=== PATIENT | female | born 1955 | race Caucasian/White ===

== ENCOUNTER → 2017-01-30 | Outpatient (CLI) | payer OTHER ==
[~2017-01-30] MED LIST: GLUC1CAP33; MULT-506 PO
[2017-01-30 10:07] LABS: CHOLESTEROL/HDL RATIO 4.3
[2017-01-30 10:34] LABS: ESTIMATED AVERAGE GLUCOSE 123 mg/dl; HA1C FLAG Normal (Normal)
== END | disposition home or self-care (01) ==
LOC: C.LAB 12:04
PROVIDERS: ATTEND Family Medicine
DX: R73.03 Prediabetes (principal); E78.00 Pure hypercholesterolemia, unspecified

== ENCOUNTER → 2017-04-02 | Outpatient (CLI) | payer OTHER ==
[~2017-04-02] MED LIST changes: +OPTIRAY 320 IV PRN
--- NOTE | 2017-04-02 08:15 | DIAGNOSTIC IMAGING REPORT ---
(CHEST) THORAX WITH CT DOSE: 1607.73 mGy.cm HISTORY: Lymphoma LYMPHOMA TECHNIQUE: Multiaxial CT images of the chest were performed following the intravenous administration of contrast. A dose lowering technique was utilized adhering to the principles of ALARA. COMPARISON: 04/12/2016 FINDINGS: The lungs are clear. The mediastinal vascular structures are within normal limits. No mediastinal or hilar lymphadenopathy. No pleural effusion or pneumothorax. Limited views of the upper abdomen demonstrate a normal liver and spleen. Unchanging micronodule in the right lung base very low suspicion. IMPRESSION: No significant abnormality identified within the chest. No change from the prior study. The above report was generated using voice recognition software. It may contain grammatical, syntax or spelling errors. Electronically signed by: Migue Oneal M.D. 04/02/2017 8:14 AM Dictated Date/Time: 04/02/2017 8:11 AM
--- NOTE | 2017-04-02 08:24 | DIAGNOSTIC IMAGING REPORT ---
ABD/PELVIS IV AND ORAL CONT CLINICAL HISTORY: 61 years-old Female presenting with LYMPHOMA. TECHNIQUE: Multidetector CT of the abdomen and pelvis was performed after the administration of oral and intravenous contrast. IV contrast: 93 mL of Optiray 320. A dose lowering technique was used consistent with the principles of ALARA (as low as reasonably achievable). COMPARISON: 04/12/2016. CT DOSE (mGy.cm): The estimated cumulative dose is 1607.73 inclusive of the chest CT. FINDINGS: Press Assistant And Feeder topogram: Right subclavian Mediport in place. Lung bases: Dependent changes at the lung bases likely atelectasis. Additionally, within the dependent opacity at the right lung base, there is a 5-6 mm solid pulmonary nodule (series 7 image 10), unchanged in size from prior exam. No pericardial or pleural effusion. Liver: Normal morphology. Suggestion of hepatic steatosis. No liver lesion. Calcification at the right hepatic dome. Patent hepatic vasculature. Biliary: No intrahepatic or extrahepatic biliary ductal dilatation. Normal gallbladder. Pancreas: Normal. Spleen: Normal. Adrenal glands: Normal. Kidneys and ureters: Well-defined hypodensity in the anterior aspect of the interpolar region of the right kidney with a density slightly above simple fluid, possibly proteinaceous or hemorrhagic cyst. This now measures 9 mm, previously 7 mm when remeasured at a comparable level. Multiple calcifications at the lower pole the left kidney, some of which may be parenchymal and some national sales representative of punctate renal calculi. No hydronephrosis. Duplicated left renal collecting system with convergence of the upper and lower pole collecting systems of the renal pelvis. Ureters normal. Gastrointestinal tract: Normal appendix. No bowel obstruction. Peritoneal cavity: No free fluid or intraperitoneal gas. Bladder: Normal. Pelvic organs: Uterus surgically absent. Vasculature: Aorta and IVC patent and normal in caliber. Lymph nodes: No enlarged lymph nodes in the abdomen or pelvis. Abdominal wall: Diastases of the abdominis rectus. Musculoskeletal: Degenerative changes of the spine. IMPRESSION: 1. No evidence of lymphadenopathy. No evidence of metastatic disease in the abdomen or pelvis. 2. Stable right lower lobe pulmonary nodule. Please see separately dictated CT chest for further details. 3. Left nephrolithiasis, new from prior. 4. Stable slight interval increase in size of the indeterminate subcentimeter right renal lesion, which may represent a proteinaceous or hemorrhagic cyst. Attention on follow-up. 5. Electronically signed by: Joe Veliz M.D. 04/02/2017 8:22 AM Dictated Date/Time: 04/02/2017 8:12 AM
== END | disposition home or self-care (01) ==
LOC: C.CTS 07:37
PROVIDERS: ATTEND Nurse Practitioner Family
DX: C82.80 Other types of follicular lymphoma, unspecified site (principal)

== ENCOUNTER → 2017-10-12 | Outpatient (CLI) | payer OTHER ==
[~2017-10-12] MED LIST changes: -OPTIRAY 320 IV PRN
[2017-10-12 09:49] LABS: HEMOGLOBIN A1C 5.9 % (4.5-5.6)
== END | disposition home or self-care (01) ==
LOC: C.LAB 17:11
PROVIDERS: ATTEND Family Medicine
DX: E78.00 Pure hypercholesterolemia, unspecified (principal); R73.03 Prediabetes

== ENCOUNTER → 2017-12-11 | Outpatient (CLI) | payer BC ==
--- NOTE | 2017-12-12 15:30 | MAMMOGRAPHY REPORT ---
BILATERAL DIGITAL SCREENING MAMMOGRAM TOMOSYNTHESIS WITH CAD: 12/11/2017 CLINICAL HISTORY: Routine screening. Patient has no complaints. TECHNIQUE: Breast tomosynthesis in addition to standard 2D mammography was performed. Current study was also evaluated with a Computer Aided Detection (CAD) system. COMPARISON: Comparison is made to exams dated: 12/17/2015 mammogram, 12/19/2012 mammogram, 05/09/2011 ma mmogram - [facility], 06/01/2009, and 02/19/2007. BREAST COMPOSITION: There are scattered areas of fibroglandular density in both breasts. FINDINGS: The parenchymal pattern is similar to prior exams. No developing mass, architectural dist ortion or cluster of suspicious microcalcifications is seen in either breast. There are scattered st able benign calcifications in both breasts. IMPRESSION: ACR BI-RADS CATEGORY 2: BENIGN There is no mammographic evidence of malignancy. A 1 year screening mammogram is recommended. The pa tient will receive written notification of the results. Approximately 10% of breast cancers are not detected with mammography. A negative mammographic report should not delay biopsy if a clinically suggestive mass is present. Gracie Ag M.D. ay/:12/11/2017 15:04:49 Law Researcher: Jimena TOVAR(Huong)(Yonathan), [facility] letter sent: Normal 1/2 BI-RADS Code: ACR BI-RADS Category 2: Benign
== END ==
LOC: C.MAMM 13:20
PROVIDERS: ATTEND Nurse Practitioner Family
DX: Z12.31 Encounter for screening mammogram for malignant neoplasm of breast (principal)

== ENCOUNTER → 2018-03-18 | Outpatient (CLI) | payer BC ==
[~2018-03-18] MED LIST changes: +ATOR-22 PO; +COEN100C7 PO; -GLUC1CAP33; +GLUC1TAB94 PO; +MAGN400T5 PO; +OXYC-90 PO; +TURM1CAP2 PO; +ZINC1TAB PO
[2018-03-18 10:07] LABS: BASO % 0.7 %; BASO ABS # 0.05 K/uL (0-0.2); EOS % 2.7 %; EOS ABS # 0.18 K/uL (0-0.5); HEMATOCRIT 42.7 % (37-47); HEMOGLOBIN 14.2 g/dL (12.0-16.0); IG# 0.02 K/uL (0.00-0.02); LYMPH % 18.8 %; LYMPH ABS # 1.27 K/uL (1.2-3.4); MEAN CELL VOLUME 93.6 fL (80-100); MEAN CORPUSCULAR HEMOGLOBIN 31.1 pg (25-34); MEAN CORPUSCULAR HGB CONC 33.3 g/dl (32-36); MEAN PLATELET VOLUME 10.5 fL (7.4-10.4); MONO % 6.4 %; MONO ABS # 0.43 K/uL (0.11-0.59); NEUT % 71.1 %; NEUT ABS # 4.81 K/uL (1.4-6.5); PLATELET COUNT 242 K/uL (130-400); RED CELL DISTRIBUTION WIDTH CV 13.3 % (11.5-14.5); RED CELL DISTRIBUTION WIDTH SD 45.7 fL (36.4-46.3); WHITE BLOOD COUNT 6.76 K/uL (4.8-10.8)
[2018-03-18 10:32] LABS: BLOOD UREA NITROGEN 12 mg/dl (7-18); CREATININE 0.67 mg/dl (0.60-1.20); GLUCOSE 99 mg/dl (70-99)
[2018-03-18 10:33] LABS: ALBUMIN 4.1 gm/dl (3.4-5.0); ALT/SGPT 28 U/L (12-78); AST/SGOT 17 U/L (15-37); CALCIUM 9.3 mg/dl (8.5-10.1); CARBON DIOXIDE 29 mmol/L (21-32); POTASSIUM 4.1 mmol/L (3.5-5.1); SODIUM 141 mmol/L (136-145)
[2018-03-18 10:45] LABS: ALKALINE PHOSPHATASE 106 U/L (45-117); TOTAL PROTEIN 6.9 gm/dl (6.4-8.2)
== END | disposition home or self-care (01) ==
LOC: C.LABSPEC 09:45
PROVIDERS: ATTEND Nurse Practitioner Family
DX: C82.80 Other types of follicular lymphoma, unspecified site (principal)

== ENCOUNTER → 2018-03-21 | Outpatient (CLI) | payer BC ==
--- NOTE | 2018-03-21 10:25 | DIAGNOSTIC IMAGING REPORT ---
L WRIST MIN 3 VIEWS ROUTINE CLINICAL HISTORY: LEFT WRIST PAIN pain COMPARISON: 01/29/2018 DISCUSSION: (Reduction internal fixation of the comminuted fracture distal radius. Alignment is considered anatomic. Mild soft tissue edematous change. IMPRESSION: Anatomic alignment post open reduction internal fixation. The above report was generated using voice recognition software. It may contain grammatical, syntax or spelling errors. Electronically signed by: Migue Oneal M.D. 03/21/2018 10:23 AM Dictated Date/Time: 03/21/2018 10:23 AM
--- NOTE | 2018-03-21 10:27 | DIAGNOSTIC IMAGING REPORT ---
L SHOULDER MIN 2 VIEWS CLINICAL HISTORY: LEFT SHOULDER PAIN trauma. Pain. COMPARISON: 02/21/2018 DISCUSSION: Unchanging nondisplaced fracture lateral aspect humeral head. Moderate degenerative change acromioclavicular joint. No evidence of dislocation. All remaining osseous structures are unremarkable. There is no evidence for soft tissue swelling. IMPRESSION: Unchanging nondisplaced fracture lateral aspect left humeral head. The above report was generated using voice recognition software. It may contain grammatical, syntax or spelling errors. Electronically signed by: Migue Oneal M.D. 03/21/2018 10:26 AM Dictated Date/Time: 03/21/2018 10:25 AM
== END | disposition home or self-care (01) ==
LOC: C.RDSM 10:15
PROVIDERS: ATTEND Orthopaedic Surgery
DX: M25.532 Pain in left wrist (principal); M25.512 Pain in left shoulder

== ENCOUNTER → 2018-04-12 | Outpatient (CLI) | payer BC ==
[2018-04-12 09:21] LABS: HEMOGLOBIN A1C 5.7 % (4.5-5.6)
[2018-04-12 09:40] LABS: ALT/SGPT 28 U/L (12-78); BLOOD UREA NITROGEN 12 mg/dl (7-18); CALCIUM 9.3 mg/dl (8.5-10.1); CARBON DIOXIDE 27 mmol/L (21-32); CHOLESTEROL 169 mg/dl (0-200); CREATININE 0.73 mg/dl (0.60-1.20); GLUCOSE 107 mg/dl (70-99); LDL CHOLESTEROL CALCULATED 81 mg/dl; POTASSIUM 4.2 mmol/L (3.5-5.1); SODIUM 142 mmol/L (136-145)
== END | disposition home or self-care (01) ==
LOC: C.LABSPEC 08:44
PROVIDERS: ATTEND Family Medicine
DX: E78.5 Hyperlipidemia, unspecified (principal); Z11.59 Encounter for screening for other viral diseases

== ENCOUNTER 2020-09-15 06:59 | Observation (INO) ==
--- NOTE | 2020-09-12 19:02 | History & Physical Report ---
Date of Service September 12, 2020 Assessment & Plan (1) Left knee DJD: Postoperative prescriptions for EKG, chest x-ray, and lab work were given. She will have them done today. Postoperative prescription for a rolling walker was also provided. She will obtain a cane. She understands that this will be 1 night in the hospital. The patient will make an appointment to see her PCP for medical clearance. She is aware of the COVID-19 risks associated with surgery. She is currently asymptomatic of any COVID-19 symptoms. Prescription was provided for COVID-19 nasal swab testing to be done today. PDMP was checked and there are no concerning findings. She would like home health postoperatively for physical therapy, using [facility]. We will make arrangements before her discharge from the hospital. She has a postoperative visit for suture removal already scheduled for 09/30 with me. History of Present Illness Chief Complaint: Left knee pain Primary Care Provider: Al Plasencia MD This 64-year-old white female presents today for left knee pain she has had for several years. She is scheduled to undergo a left knee total knee arthroplasty on 09/15/2020. It has become worse with time. She initially was able to control her discomfort with viscosupplementation injections, cortisone injections and activity modification. Those are no longer working. She is now having daily pain. Occasional night pain. She denies any swelling. No catching or locking. No buckling. Worse with weightbearing activity. Pain is affecting her ADLs. She denies any numbness or tingling. She elects to proceed with surgical intervention in hopes of improving her function. Preoperative imaging has been obtained. Allergies Allergy/AdvReac Type Severity Reaction Status Date / Time No Known Drug Allergies Allergy Verified 09/10/20 09:00 Home Medications Medication Instructions Recorded Confirmed Type coenzyme Q10 10 mg capsule 100 mg PO 4XWK 12/11/19 09/10/20 History multivitamin 0.5 tab PO BID 12/11/19 09/10/20 History ascorbic acid-collagen [Collagen 2 cap PO QAM 08/04/20 09/10/20 History Plus Vitamin C] aspirin [Aspir-81] 81 mg PO 4XWK 08/04/20 09/10/20 History atorvastatin [Lipitor] 40 mg PO PM 08/04/20 09/10/20 History ibuprofen [Advil] 600 mg PO Q6H PRN 08/04/20 09/10/20 History turmeric root extract 700 mg PO QPM 08/04/20 09/10/20 History Past Med/Surg History Medical History (Updated 09/12/20 @ 19:01 by Joesph Coombs PA-C) Cancer [id number] DR MARLO SOLARES ANNUALLY History of skin cancer Hyperlipidemia Kidney stones HX Sleep apnea CPAP Temporomandibular joint disorder CLICKS ON OCC-RIGHT SIDE-NO LOCKING Transient ischemic attack (TIA) 2006-SEVERE HEADACHE, ELEVATED BP-USED TO F/U DR ROBINS AND DISCHARGED-NO ISSUES SINCE Surgical History History of bronchoscopy History of colonoscopy History of hysterectomy History of lithotripsy X 2 History of open reduction and internal fixation (ORIF) procedure LEFT WRIST History of salpingo-oophorectomy BILATERAL History of tonsillectomy and adenoidectomy History of tubal ligation History of vascular access device IN PLACE RIGHT SIDE Family History Mother Diabetes Hypertension Kidney stones Kidney disease Other Skin cancer Denies family history of Ovarian cancer Breast cancer Colorectal cancer Social History Smoking Status: Never smoker Second Hand Exposure: Yes (SPOUSE SMOKES); Hx Alcohol Use: Yes Alcohol type: wine Hx Substance Use: No Preferred Language: Bulgarian Communication Ability: Effective Radio Time Sales Supervisor Required: No Beliefs That Will Affect Care: None marital status: Current Living Situation: Spouse current occupational status: employed 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 Physical Exam Physical Exam: Vitals: Height 162.5 cm, weight 99.7 kilograms, BMI 37.8: Temperature 36.4, BP 136/82, pulse 75, O2 sat 97% on room air. General: Well-developed, well-nourished, elderly white female in no acute distress. Sitting in a chair. Alert and oriented. Skin: Warm and dry with good turgor. No rashes or lesions. No ecchymosis or erythema. HEENT: Normocephalic, atraumatic. Eyes: PERRLA, EOMI. Oropharynx and nares exams are deferred due to COVID precautions. Heart: RRR, no MGR. Lungs: Clear to auscultation bilaterally, no crackles, rhonchi or wheezing, good air movement. Abdomen: Obese, bowel sounds present x4, soft, nontender. No organomegaly. No masses. Musculoskeletal: Left knee evaluation reveals no obvious effusion. She does have a varus alignment. No erythema or warmth at the knee. She lacks about 5 degrees of terminal extension. Flexion to greater than 100 degrees. Strength is 5/5 with fair quad tone. She is able to perform straight leg raise. She has focal discomfort with palpation over the medial joint line as well as the peripatellar area. No lateral joint line discomfort with palpation today. Stable collateral ligaments. No defect in the patellar tendon or quadriceps tendon. Ambulatory with an antalgic gait. Neurologic: Gross sensation is intact across both lower extremities by soft touch. Peripheral pulses are 2+. Results & Data Results & Data ([facility]) Diagnostic Findings Radiographic imaging previously obtained in April shows endstage DJD with significant medial joint space narrowing. She has [id number]. Significant osteophytes are present.
--- NOTE | 2020-09-13 14:54 | Anesthesiology Consultation ---
Date of Service September 13, 2020 Assessment & Plan (1) Encounter for pre-operative examination: - Per assessment on 09/10: Travel screen negative. No known COVID-19 positive contacts or current COVID-19 related symptoms. Patient had preop COVID test 09/08 (ID) which was negative. - S/P Left distal radius ORIF: 02/05/18: Grade 2 view (ramped up on blankets), MAC#3, ETT 7.5 at [facility] - Hematology/oncology note: 07/30/20: Medically cleared for surgery. - PCP office visit: 09/10/20: "Estimated risk of adverse outcome was non- cardiac surgery low risk.. Estimated rate of myocardial infarction, pulmonary edema, ventricular fibrillation, cardiac arrest, or complete heart block 0.9%.. Low risk for surgery. May proceed." - *Per Kaitlin in OR, patient approved for inpatient surgery as scheduled (DOS 09/15)* Chart Review Chart Review: Acceptable Risk for Surgery and Patient NOT seen in Pre Admission Testing History Surgery Operation Date: 09/15/20 09:35 Proposed Procedures p Left Total Knee Arthroplasty - Aden Tate MD Height/Weight Height: 5 ft 4 in Weight: 99.79 kg Allergies Allergy/AdvReac Type Severity Reaction Status Date / Time No Known Drug Allergies Allergy Verified 09/15/20 07:32 Medications Home Medications Medication Instructions Recorded Confirmed Last Taken coenzyme Q10 10 mg capsule 100 mg PO 4XWK 12/11/19 09/15/20 09/10/20 12:00 multivitamin 0.5 tab PO BID 12/11/19 09/15/20 09/14/20 12:00 ascorbic acid-collagen [Collagen 2 cap PO QAM 08/04/20 09/15/20 09/14/20 12:00 Plus Vitamin C] aspirin [Aspir-81] 81 mg PO 4XWK 08/04/20 09/15/20 09/10/20 12:00 atorvastatin [Lipitor] 40 mg PO PM 08/04/20 09/15/20 09/13/20 18:00 ibuprofen [Advil] 600 mg PO Q6H PRN 08/04/20 09/15/20 Unknown turmeric root extract 700 mg PO QPM 08/04/20 09/15/20 09/10/20 12:00 Active Medications Generic Name Dose Route Start Last Admin Trade Name Maria Victoria PRN Reason Stop Dose Admin Lactated Ringer's 1,000 mls @ 60 mls/hr 09/15/20 06:00 09/15/20 07:58 Lr IV 09/15/20 22:39 Not Given .[id number] ANGELICA Lactated Ringer's 1,000 mls @ 15 mls/hr 09/15/20 06:00 09/15/20 07:43 Lr IV 09/15/20 18:00 15 mls/hr .Q24H ANGELICA Administration Past Medical History Medical History Cancer lymphoma (2015)- follows with oncology annually ([facility]) History of skin cancer HTN (hypertension) Hyperlipidemia Kidney stones hx Obesity Sleep apnea CPAP Temporomandibular joint disorder occasional right sided clicking, no locking Transient ischemic attack (TIA) 2005 (severe headache, elevated BP), no issues since, follows with neurology (Dr. Oneal) Past Family History Family History Mother Diabetes Hypertension Kidney stones Kidney disease Other Skin cancer Denies family history of Ovarian cancer Breast cancer Colorectal cancer Past Surgical History Surgical History History of bronchoscopy History of colonoscopy History of hysterectomy History of lithotripsy x2 History of open reduction and internal fixation (ORIF) procedure Left distal radius ORIF: 02/05/18: Grade 2 view (ramped up on blankets), MAC#3, ETT 7.5 at [facility] History of salpingo-oophorectomy B/L History of tonsillectomy and adenoidectomy History of tubal ligation History of vascular access device Right side (in place) Social History Smoking Status: Never smoker Do You Dip or Chew Tobacco: No Hx Alcohol Use: Yes Alcohol type: wine alcohol intake frequency: a few times a month Hx Substance Use: No Physical Exam Vital Signs Last Vital Signs Temp 37 C 09/15/20 07:24 Pulse 75 09/15/20 07:24 Resp 20 09/15/20 07:24 BP 150/82 H 09/15/20 07:24 Pulse Ox 92 09/15/20 07:24 Testing Laboratory Results Blood Type O Positive 09/08/20 12:04 Antibody Screen NEGATIVE 09/08/20 12:04 09/08/19 WBC 10.28 H/H 14.6/43.7 PLATELETS 261 SODIUM 139 POTASSIUM 4.1 CHLORIDE 106 CO2 27 BUN 12 CREATININE 0.66 GLUCOSE 96 PT 10.3 PTT 24.5 INR 1.0 07/28/20 TSH 2.230 (WNL) HGBA1C 5.8% Electrocardiogram Date: 09/08/20 NSR at 60bpm. iRBBB. unconfirmed report. Chest X-Ray Date: 09/08/19 FINDINGS: PA and lateral chest radiographs are compared to study dated 05/11/2015 and correlated with chest CT dated 01/23/2020. A right subclavian central venous infusion port is unchanged in position. The heart is enlarged. The pulmonary vasculature is noncongested. Atelectasis is noted at the lung bases. No airspace consolidation or pleural effusion is identified apparent increase in density at both lung bases is related to overlying soft tissue. There is no pneumothorax. The skeletal structures are osteopenic. The bony thorax appears intact. Degenerative change is noted throughout the thoracic spine. IMPRESSION: Cardiomegaly with no active disease in the chest.
[~2020-09-15 06:59] MED LIST changes: -ATOR-22 PO; -COEN100C7 PO; -GLUC1TAB94 PO; +LR 500ML BOLUS, THEN 15ML/HR IV SCH; +LR 60ML/HR IV SCH; -MAGN400T5 PO; -MULT-506 PO; -OXYC-90 PO; +ROPIVACAINE 0.5% HCL/PF 150 MG, BUPIVACAINE 0.75% MPF 20 ML, EPINEPHrine 0.15 MG, Ketor... INFIL SCH; +TRANEXAMIC ACID 1,000 MG **IV Pre-op IV SCH; -TURM1CAP2 PO; -ZINC1TAB PO; +ceFAZolin 2000MG 2,000 MG/15 ML SYR IV SCH
[2020-09-15] MEDS ORDERED: BUPIVACAINE 0.5 % 5 MG/1 ML PF 10ML VIAL ONE (08:02)
[2020-09-15] MEDS ORDERED: BUPIVACAINE 0.25% 30 ML VIAL ONE (08:03)
[2020-09-15] MEDS ORDERED: PROPOFOL IV EMULSION 10 MG/ML 20 ML VIAL IV ONE (08:26)
[2020-09-15] MEDS ORDERED: LIDOCAINE HCL 2% 2 ML VIAL/AMP(20MG/ML) INFIL ONE (08:26)
[2020-09-15] MEDS ORDERED: MIDAZOLAM HCL 1 MG/ML 2ML VIAL ONE (08:26)
[2020-09-15] MEDS ORDERED: fentaNYL citrate 100 MCG/2 ML VIAL ONE (08:27)
[2020-09-15] MEDS ORDERED: fentaNYL citrate 100 MCG/2 ML VIAL IV PRN (08:31)
[2020-09-15] MEDS ORDERED: ONDANSETRON INJ 2 MG/ML 2 ML VIAL IV PRN ×2 (08:31→12:26)
[2020-09-15] MEDS ORDERED: ATROPINE SULFATE 0.1 MG/ML 10ML SYR IV PRN (08:31)
[2020-09-15] MEDS ORDERED: ePHEDrine sulfate 50 MG/ML AMP IV PRN (08:31)
--- NOTE | 2020-09-15 08:58 | History & Physical Bridge Note ---
Date of Service September 15, 2020 History & Physical Bridge Note I have examined the patient, reviewed the History & Physical and in the interval since the performance of the History & Physical I have noted the following changes of clinical significance:conent obtained/site verified/covid screen negative. no changes noted
--- NOTE | 2020-09-15 10:50 | Post Operative Brief Note ---
Immediate Post Op Note v1 Date of Surgery September 15, 2020 Pre & Post Diagnosis Operation Date: 09/15/20 09:35 Pre-Op Diagnosis: Left Knee Degenerative Joint Disease Post-Op Diagnosis: Left Knee Degenerative Joint Disease I identified the patient and participated in the time-out.: Yes Procedure Operation Date: 09/15/20 09:35 Actual Procedures p Left Total Knee Arthroplasty(Left) - Aden Tate MD Surgeon Aden Tate MD [facility] Estimated Blood Loss 25 Findings Consistent with Post-Op Diagnosis
--- NOTE | 2020-09-15 10:59 | Operative Report ---
Post Operative Report Pre & Post Diagnosis Operation Date: 09/15/20 09:35 Pre-Op Diagnosis: Left Knee Degenerative Joint Disease Post-Op Diagnosis: Left Knee Degenerative Joint Disease I identified the patient and participated in the time-out.: Yes Procedure Operation Date: 09/15/20 09:35 Actual Procedures p Left Total Knee Arthroplasty(Left) - Aden Tate MD Surgeon SUSHIL Tate MD Aviation Project Engineer jerry MANNING Estimated Blood Loss 25 Findings Consistent with Post-Op Diagnosis Specimens see operative report Drains none Complications none Disposition Accompanied Patient To Recovery: Yes Disposition: Recovery Room Indications This 64-year-old white female presented to the office with complaints of persisting left knee pain. She had tried conservative care measures without improvement. She elected to proceed with surgical intervention after being educated about potential risks and outcomes. Preoperative imaging was obtained. Description of Procedure Patient was administered a spinal anesthetic and then taken to the operating room where she was given sedation. She was prepped and draped in the usual sterile fashion. Please see Dr. Tate's operative report for specifics of the procedure. I was present for the entire case from initial patient positioning through final wound closure. Assistance was provided in tissue retraction, hemostasis, trial implant placement, final implant placement, and final wound closure. Patient was taken to the recovery room in satisfactory condition. I attest to the content of the Intraoperative Record and any orders documented therein. Any exceptions are noted below.
--- NOTE | 2020-09-15 11:12 | Operative Report (OR) ---
DATE OF OPERATION: 09/15/2020 SURGEON: Aden Tate MD. WOUND NURSE: Joesph Coombs PA-C. No resident or fellow available. PREOPERATIVE DIAGNOSIS: Osteoarthritis, tricompartmental, severe, left knee. POSTOPERATIVE DIAGNOSIS: Osteoarthritis, tricompartmental, severe, left knee. OPERATION PERFORMED: Cemented left knee replacement. SUMMARY OF IMPLANTS: Size 2.5 left posterior cruciate substituting femur, size 2.5 mobile bearing tray tibia, size 38 patella, size 2.5 x 17.5 poly insert, 2 bags of Palacos G cement. ESTIMATED BLOOD LOSS: 25 mL. CRYSTALLOID: Per anesthesia. BONE PATHOLOGY: Pending. DVT prophylaxis per protocol. PERIOPERATIVE SITUATION: Medically cleared female with intractable knee pain. Physical exam and x-rays reveal substantial disease. She has failed conservative management including multiple injections. DESCRIPTION OF PROCEDURE: The patient was appropriately identified, site verified, consent verified. Antibiotics confirmed as being given. The left lower extremity was prepped and draped in the usual routine fashion. Tourniquet was inflated to 300 mmHg after exsanguination of limb with a rubber Esmarch bandage for a total of approximately 46 minutes. Midline exposure was utilized. Parapatellar arthrotomy performed. Synovectomy completed. The patella could easily be everted. Osteophytes resected. Distal femur entered. Distal femur resected 12 mm. Proximal tibia resected 4 mm. The extension gap was quite loose and required a 17.5 mm spacer. This is likely based on all the osteophytes being resected, which was taking up space and tightening up the ligaments. The femur was sized between a 3 and a 2.5, was measured 3, cut 2.5. There was no notching. The flexion gap was excellent. The tibia was sized to 2.5 and appropriate broaching and reaming carried out and the tibial baseplate made. With a 17.5 spacer, the knee was stable in full range, had good mid range stability and full flexion and full extension. The patella tracked well. Osteophytes resected off the patella and resected leaving 14 mm. A 38 button was then seated and tracked well. All trial implants were removed after the knee was injected with Orthomix including posteriorly. The wound irrigated with Betadine Pulsavac and then the permanent cemented into position, tibia, femur and patella in that order. After 12 minutes, the tourniquet was deflated. Minor bleeding points were controlled with electrocautery. Some bone wax was placed around some of the raw surface of the bone. The wound was irrigated one final time. At 14 minutes, the trial liner seated. No extra cement needed to be removed and the permanent liner seated. The knee reduced and closed at 40 degrees of flexion with #2 Vicryl, 2-0 Vicryl and stainless steel clips. Appropriate dressing was applied. The patient was transferred to recovery room in satisfactory condition having tolerated the procedure well. Bone pathology pending. DVT prophylaxis per protocol. Total blood loss 25 mL. Total tourniquet time 46 minutes, pressure 300 mmHg. I attest to the content of the Intraoperative Record and any orders documented therein. Any exception s are noted below.
--- NOTE | 2020-09-15 11:31 | XRay Report ---
XR knee LT 1 or 2V routine HISTORY: 64 years-old Female s/p l tka postoperative exam. Left knee total joint arthroplasty COMPARISON: Left knee radiographs 05/17/2020 TECHNIQUE: 2 views of the left knee FINDINGS: Left knee total joint arthroplasty and patella resurfacing. Satisfactory alignment without acute frac ture or unexpected opaque foreign body. Anterior skin calos are noted along with expected postsurgi dino soft tissue swelling and deep tissue air with surgical drainage catheter. IMPRESSION: Left knee total joint arthroplasty with expected postoperative changes. ACT 112: Negative or not required by law. The above report was generated using voice recognition software. It may contain grammatical, syntax o r spelling errors. Electronically signed by: Cecilio Floyd M.D. 09/15/2020 11:29 AM
[2020-09-15] MEDS ORDERED: SODIUM CHLORIDE 0.9% 1000ML 1,000 ML IV SCH (12:26)
[2020-09-15] MEDS ORDERED: MAGNESIUM HYDROXIDE SUSP 30 ML UDC PO PRN (12:26)
[2020-09-15] MEDS ORDERED: NALOXONE HCL 0.4 MG/1 ML VIAL/CARP IV PRN (12:26)
[2020-09-15] MEDS ORDERED: oxyCODONE HCL IR 5 MG TAB (IMMEDIATE RELEASE) PO PRN (12:26)
[2020-09-15] MEDS ORDERED: ALUMINUM/MAGNESIUM SUSP 30 ML UDC PO PRN (12:26)
[2020-09-15] MEDS ORDERED: bisacodyL 10 MG SUPP PR PRN (12:26)
[2020-09-15] MEDS ORDERED: diphenhydrAMINE 50 MG/ML VIAL IV PRN (12:26)
[2020-09-15] MEDS ORDERED: HYDROmorphone INJ 0.5 MG/0.5 ML SYR IV PRN (12:26)
[2020-09-15] MEDS ORDERED: METOCLOPRAMIDE HCL INJ 5 MG/ML 2 ML VIAL IV PRN (12:26)
--- NOTE | 2020-09-15 12:27 | Anesthesiology Progress Note ---
Date of Service September 15, 2020 Anesthesia Post Procedure Vital Signs Vital Signs: Temp Pulse Pulse Resp BP BP Pulse Ox 09/15/20 11:55 36.6 C 62 12 124/73 97 09/15/20 11:45 63 23 111/69 96 09/15/20 11:35 66 17 120/66 94 09/15/20 11:25 60 16 94/63 L 97 09/15/20 11:15 62 13 102/61 95 09/15/20 11:05 65 17 108/58 L 95 09/15/20 10:59 36.5 C 69 15 99/52 L 95 09/15/20 07:24 37 C 75 20 150/82 H 92 Transfer of Care Handoff Completed per policy Notes Mental Status: alert / awake / arousable and participated in evaluation Patient Amnestic to Procedure: Yes Nausea / Vomiting: adequately controlled Pain: adequately controlled Airway Patency, RR, SpO2: stable & adequate BP & HR: stable & adequate Hydration State: stable & adequate Neuraxial Anesthesia: was administered and sensory block is resolving Anesthetic Complications: no major complications apparent and Pt Satisfied with anesthetic care
[2020-09-15] MEDS: ACETAMINOPHEN 500 MG TAB PO SCH ×2 (13:29→21:46)
[2020-09-15] MEDS: KETOROLAC TROMETHAMINE 15 MG/ML VIAL IV SCH ×2 (13:30→19:38)
[2020-09-15] MEDS ORDERED: VANCOMYCIN HCL 1,500 MG in SODIUM CHLORIDE 0.9% 500 ML IV ONE (13:30)
[2020-09-15] MEDS: ORTHO WARFARIN NOMOGRAM SCH (15:08)
[2020-09-15] MEDS ORDERED: WARFARIN SOD 5 MG TAB PO SCH (16:00)
[2020-09-15] MEDS: FERROUS GLUCONATE 324 MG TAB PO SCH (16:19)
[2020-09-15] MEDS: ASCORBIC ACID 500 MG TAB PO SCH (16:19)
--- NOTE | 2020-09-15 16:55 | Progress Notes ---
DATE: 09/15/2020 SUBJECTIVE: Postop check, status post left total knee replacement. The patient is doing well, has no major issues. Denies any chest pain, shortness of breath, fever, chills, nausea, vomiting or headache. OBJECTIVE: Vital signs are stable. She is afebrile. Neurovascular check is limited by spinal, starting to wear off. Wound dressing clean, dry and intact. Calves nontender. Postop x-rays look excellent. ASSESSMENT: Doing well. Continue with postoperative care pathway, mobilize when spinal effects have worn off completely.
[2020-09-15] MEDS ORDERED: TRANEXAMIC ACID / 0.7% NACL 1,000 MG/100 ML BAG IV SCH (17:00)
[2020-09-15] MEDS: ceFAZolin 2000MG 2,000 MG/15 ML SYR IV SCH (17:09)
[2020-09-15] MEDS ORDERED: SENNA 8.6 MG TAB PO SCH (21:00)
[2020-09-15] MEDS ORDERED: ATORVASTATIN 40 MG TAB PO SCH (21:00)
[2020-09-15] MEDS: DOCUSATE SODIUM 100 MG CAP PO SCH (21:43)
[2020-09-16] MEDS: HEPARIN 100 UNIT/ML 5ML FLUSH FLUSH PRN ×4 (01:43→13:18)
[2020-09-16] MEDS: ceFAZolin 2000MG 2,000 MG/15 ML SYR IV SCH (01:43)
[2020-09-16] MEDS: KETOROLAC TROMETHAMINE 15 MG/ML VIAL IV SCH ×2 (01:43→09:03)
[2020-09-16] MEDS: ACETAMINOPHEN 500 MG TAB PO SCH ×2 (05:48→14:09)
[2020-09-16 06:26] LABS: Hematocrit (blood only) 34.2 % (37-47); Hemoglobin 11.6 g/dL (12.0-16.0); Mean Corpuscular Hemoglobin 31.7 pg (25-34); Mean Corpuscular Hgb Conc 33.9 g/dL (32-36); Mean Corpuscular Volume 93.4 fL (80-100); Mean Platelet Volume 10.6 fL (7.4-10.4); Platelet Count 211 K/uL (130-400); RDW Coefficient of Variation 13.4 % (11.5-14.5); RDW Standard Deviation 45.9 fL (36.4-46.3); Red Blood Count 3.66 M/uL (4.2-5.4)
[2020-09-16 06:35] LABS: INR 1.1 (0.9-1.1); Prothrombin Time 11.8 Seconds (9.0-12.0)
[2020-09-16 07:01] LABS: BUN Creatinine Ratio 21.7 (10-20); Calcium 8.6 mg/dl (8.5-10.1); Creatinine Clr Calc Pharmacy 109.7 ml/min; Est GFR (African American) 112.1; Est GFR (Non-African American) 96.7; Potassium 3.7 mmol/L (3.5-5.1)
--- NOTE | 2020-09-16 07:11 | Discharge Summary (DS) ---
CHIEF COMPLAINT: Left knee pain. HISTORY OF PRESENT ILLNESS: The patient is admitted for elective left total knee replacement. Hospital course has been uneventful to date. At this point in time, she will be discharged after PT, OT as well as after laboratory assessment. Intraoperative procedure went well. Postop x-rays look excellent. ALLERGIES: No known drug allergies. HOME MEDICATIONS: Include CoQ10, multivitamin, aspirin, atorvastatin, ibuprofen and turmeric. PAST MEDICAL/SURGICAL HISTORY: Remarkable for lymphoma, actively treated by Dr. Wilburn; history of skin cancer; hyperlipidemia; kidney stones; sleep apnea and TIA. History of bronchoscopy, colonoscopy, hysteroscopy, hysterectomy, lithotripsy wrist fracture, oophorectomy, tonsillectomy, tubal ligation and vascular access, right thigh. FAMILY HISTORY: Remarkable for diabetes, hypertension, kidney stones, kidney disease and also skin cancer. Denies family history of ovarian, breast or colorectal cancer. SOCIAL HISTORY: Reveals she is . Does not smoke or drink. Lives with her spouse. Has multiple children. REVIEW OF SYSTEMS: Reveals no chest pain, shortness of breath, fever, chills, nausea, vomiting or headache. ASSESSMENT: Status post left total knee replacement. Plan is for discharge home today if she does well with PT/OT and laboratory work looks good. Coumadin per nomogram.
--- NOTE | 2020-09-16 07:13 | Progress Notes ---
DATE: 09/16/2020 SUBJECTIVE: Followup left total knee replacement. Did well overnight, slept most of the night. Denies any chest pain, shortness of breath, fever, chills, nausea, vomiting or headache. OBJECTIVE: VITAL SIGNS: Stable. She is afebrile. LABORATORY WORK: Pending. Wound dressing clean, dry and intact. Neurovascular check, femoral sciatic nerve is normal. Calves nontender. ASSESSMENT: Doing well status post left total knee replacement. Plan is to discharge home today after PT/OT and if laboratory work looks good. labs are good ok to leave. ELDERD
[2020-09-16] MEDS ORDERED: dexAMETHasone 10 MG in SYRINGE 0 ML IV SCH (08:00)
[2020-09-16] MEDS ORDERED: MULTIVITAMIN TAB PO SCH (09:00)
[2020-09-16] MEDS ORDERED: ASPIRIN 81 MG ECTAB PO SCH (09:00)
[2020-09-16] MEDS: DOCUSATE SODIUM 100 MG CAP PO SCH (09:03)
[2020-09-16] MEDS: FERROUS GLUCONATE 324 MG TAB PO SCH (09:03)
[2020-09-16] MEDS: ASCORBIC ACID 500 MG TAB PO SCH (09:03)
[2020-09-16] MEDS ORDERED: WARFARIN SOD 5 MG TAB PO SCH (10:30)
[2020-09-16] MEDS: ORTHO WARFARIN NOMOGRAM SCH (14:09)
== END 2020-09-16 14:54 | disposition home health service (06) ==
LOC: ASU 06:59 → 3W 06:59